=== PATIENT | female | born 1955 | race Caucasian/White ===

== ENCOUNTER 2023-06-05 14:50 | Outpatient (REF) | payer MEDICARE, SELFPAY ==
--- OUTSIDE RECORDS SUMMARY | 2023-06-05 14:53 | XMS_ITS | Clinical Summary ---
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 Stacy Mcmullen Acquired absence of both cervix and uterus ASTHMA 241846977 (SNOMED CT) Active Stacy Mcmullen Asthma Medications Medication Instructions Start Date Stop Date Generic Name [facility] Provider ADVIL TABS DO NOT REFILL - No dose or instructions given for this med [facility] IBUPROFEN TABS 85297131278 Srinivasa Lizarraga MD SINGULAIR TABS DO NOT REFILL - No dose or instructions given for this med [facility] MONTELUKAST SODIUM TABS [id number] Srinivasa Lizarraga MD PREMARIN TABS DO NOT REFILL - No dose or instructions given for this med [facility] ESTROGENS CONJUGATED TABS [id number] Srinivasa Lizarraga MD CALCIUM TABLET CALCIUM CARBONATE-VITAMI N D TABS [id number] Stacy Mcmullen ALBUTEROL SULFATE TABS DO NOT REFILL - No dose or instructions given for this med [facility] ALBUTEROL SULFATE TABS [id number] Stacy Mcmullen PREMARIN TABS DO NOT REFILL - No dose or instructions given for this [facility] ESTROGENS CONJUGATED TABS [id number] Stacy Dominguezbot PRILOSEC OTC TBEC OMEPRAZOLE MAGNESIUM TBEC [id number] Stacy Dominguezbot LEVOXYL TABS DO NOT REFILL - No dose or instructions given for this [facility] LEVOTHYROXINE SODIUM TABS [id number] Stacy Dominguezbot SINGULAIR TABS DO NOT REFILL - No dose or instructions given for this [facility] MONTELUKAST SODIUM TABS [id number] Stacy Dominguezbot Medications Administered No information available. Allergies, Adverse Reactions, Alerts Observed no known allergies at Results No information available. Plan of Care No information available. Procedures No information available. Vital Signs No information available. Immunizations No information available. Advance Directives No information available.
[2023-06-05 15:25] LABS: WBC 20-50 HPF (0-5)
[2023-06-05 15:26] LABS: Bacteria Few HPF (Negative); C & S Indicated? C&S Done As Ordered; Crystals Negative HPF (Negative); Epithelial Cells Rare HPF (Negative); Mucus Trace (Negative); Other Cells Negative (Negative)
== END 2023-06-05 14:51 | disposition home or self-care (01) ==
LOC: LBN 14:50
PROVIDERS: Visit Provider Physician Assistant Medical
DX: R30.0 Dysuria (principal); R82.79 Other abnormal findings on microbiological examination of urine
CPT/HCPCS: 87077; 81015; 87086; 87186